=== PATIENT | female | born 1950 | race Caucasian/White ===

== ENCOUNTER 2021-03-11 17:41 | Outpatient (CLI) | payer OTHER, MEDICARE | END 2021-03-11 17:42 | disposition critical access hospital (66) | LOC: EMS 17:41 | DX: S09.93XA Unspecified injury of face, initial encounter (principal); M25.552 Pain in left hip; V23.5XXA Motorcycle passenger injured in collision with car, pick-up truck or van in traffic accident, initial encounter; Y93.55 Activity, bike riding; Y92.410 Unspecified street and highway as the place of occurrence of the external cause | CPT/HCPCS: A0425; A0427 ==

== ENCOUNTER 2021-03-11 18:01 | Emergency (ER) | payer OTHER, MEDICARE ==
[2021-03-11] MEDS ORDERED: HYDROmorphone 1 MG/ML CARPUJECT IVP STA (19:07)
[2021-03-11] MEDS ORDERED: ONDANSETRON 4 MG/2 ML VIAL IVP STA (19:07)
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
[2021-03-11 19:52] LABS: BASOPHILS # (AUTO) 0.1 10^3/uL (0.0-0.1); BASOPHILS % (AUTO) 0.5 %; EOSINOPHILS % (AUTO) 0.3 %; HCT - HEMATOCRIT 37.5 % (37.0-47.0); HGB - HEMOGLOBIN 12.8 g/dL (12.0-16.0); LYMPHOCYTES # (AUTO) 0.8 10^3/uL (1.5-3.5); LYMPHOCYTES % (AUTO) 5.4 %; MEAN CORPUSCULAR HEMOGLOBIN 31.1 pg (27.0-31.0); MEAN CORPUSCULAR HGB CONC 34.1 g/dL (32.0-36.0); MEAN CORPUSCULAR VOLUME 91.2 fL (81.0-99.0); MEAN PLATELET VOLUME 9.9 fL (7.9-10.8); MONOCYTES # (AUTO) 0.7 10^3/uL (0.0-1.0); MONOCYTES % (AUTO) 5.1 %; NEUTROPHILS # (AUTO) 12.1 10^3/uL (1.5-6.6); PLT - PLATELET COUNT 229 10^3/uL (130-450); RED BLOOD COUNT 4.11 10^6/uL (4.20-5.40); WHITE BLOOD COUNT 13.8 x10^3/uL (4.8-10.8)
[2021-03-11 20:03] LABS: ALBUMIN 4.5 g/dL (3.2-5.5); ALBUMIN/GLOBULIN RATIO 1.6 (1.0-2.2); BILIRUBIN,TOTAL 1.1 mg/dL (0.2-1.0); CALCIUM 9.5 mg/dL (8.5-10.3); CREATININE 0.8 mg/dL (0.4-1.0); POTASSIUM 3.1 mmol/L (3.5-5.0); TOTAL PROTEIN 7.4 g/dL (6.7-8.2)
--- NOTE | 2021-03-11 20:21 | XRAY Report ---
PROCEDURE: Chest 1 View X-Ray INDICATIONS: chest pain TECHNIQUE: One view of the chest was acquired. COMPARISON: None FINDINGS: Surgical changes and devices: None. Lungs and pleura: No pleural effusions or pneumothorax. Lungs are clear. Mediastinum: Mediastinal contours appear normal. Heart size is normal. Bones and chest wall: No suspicious bony lesions. Overlying soft tissues appear unremarkable. Surg ical clips are seen in the left axilla. IMPRESSION: No acute cardiopulmonary abnormality Reviewed by: Rodolfo Murdock on 03/11/2021 8:20 PM PDT Approved by: Rodolfo Murdock on 03/11/2021 8:20 PM PDT Station ID: [id number]
--- NOTE | 2021-03-11 20:34 | CT Report ---
PROCEDURE: PELVIS WO INDICATIONS: L hip fracture TECHNIQUE: Noncontrast 3 mm axial sections acquired through the bony pelvis, with coronal and sagittal reformatt ing. For radiation dose reduction, the following was used: automated exposure control, adjustment of mA and/or kV according to patient size. COMPARISON: None. FINDINGS: Image quality: Excellent. Bones: The left iliac wing has a comminuted fracture. The left femoral neck has a comminuted fractur e. The left hip has underlying hip dysplasia with severe degenerative changes with subchondral sclero sis and subchondral cystic changes of both the femoral head articular surface and the acetabulum. The sacroiliac joints are intact bilaterally. The left inferior and superior rami are fractured. Soft tissues: There is fat stranding adjacent to the left iliac wing fracture with a hematoma approx imately 2 x 4 cm. IMPRESSION: 1. Comminuted fracture of the left iliac wing. 2. Comminuted fracture of the left femoral neck. 3. Left superior and inferior ramus fractures. 4. Pelvic hematoma overlying the left iliac wing fracture. Reviewed by: Rodolfo Murdock on 03/11/2021 8:32 PM PDT Approved by: Rodolfo Murdock on 03/11/2021 8:32 PM PDT Station ID: [id number]
[2021-03-11] MEDS ORDERED: SODIUM CHLORIDE 0.9% 1,000 ML IV STA ×3 (20:41→21:20)
[2021-03-11 20:54] LABS: B. PARAPERTUSSIS- RESP PCR PAN NOT DETECTED; B. PERTUSSIS- RESP PCR PANEL NOT DETECTED; C. PNEUMONIAE- RESP PCR PANEL NOT DETECTED; CORONAVIRUS 229E-RESP PCR NOT DETECTED; CORONAVIRUS HKU1-RESP PCR NOT DETECTED; CORONAVIRUS NL63-RESP PCR NOT DETECTED; CORONAVIRUS OC43-RESP PCR NOT DETECTED; HUMAN METAPNEUMOVIRUS NOT DETECTED; INFLUENZA A- RESP PCR PANEL NOT DETECTED; INFLUENZA B - RESP PCR PANEL NOT DETECTED; M. PNEUMONIAE- RESP PCR PANEL NOT DETECTED; PARAINFLUENZA VIRUS 1 NOT DETECTED; PARAINFLUENZA VIRUS 2 NOT DETECTED; PARAINFLUENZA VIRUS 3 NOT DETECTED; PARAINFLUENZA VIRUS 4 NOT DETECTED; RHINOVIRUS/ENTEROVIRUS NOT DETECTED; RSV- RESP PCR PANEL NOT DETECTED; SARS-CoV-2 -RESP PCR PANEL NOT DETECTED
[2021-03-11] MEDS ORDERED: IOPAMIDOL-300 100 ML VIAL ONE (21:35)
[2021-03-11 21:56] VITALS: BP 110/52
== END 2021-03-11 22:06 | disposition short-term general hospital (02) ==
LOC: ED 18:01
DX: S32.302A Unspecified fracture of left ilium, initial encounter for closed fracture (principal); S72.002A Fracture of unspecified part of neck of left femur, initial encounter for closed fracture; S32.592A Other specified fracture of left pubis, initial encounter for closed fracture; V28.5XXA Motorcycle passenger injured in noncollision transport accident in traffic accident, initial encounter; Y93.55 Activity, bike riding; Q65.89 Other specified congenital deformities of hip; I10 Essential (primary) hypertension; Z20.822 Contact with and (suspected) exposure to COVID-19
CPT/HCPCS: 0202U; 36415; 71045; 72192; 73502; 80053; 85025; 96374; 96375; 99285; J1170